=== PATIENT | female | born 1960 | race African-American/Black ===

== ENCOUNTER 2018-11-02 11:29 | Outpatient (CLI) | payer OTHER ==
--- NOTE | 2018-11-02 12:09 | RAD ---
RIGHT ANKLE TWO VIEWS: History: Disability exam. Patient had injury in 2011. FINDINGS/IMPRESSION: No fracture, dislocation, or bony destruction is seen. The ankle mortise is maintained. Posterior and plantar calcaneal spurs are present. POS: C
--- NOTE | 2018-11-02 13:13 | RAD ---
RADIOGRAPH LUMBAR SPINE 2 VIEWS: 11/02/2018 HISTORY: A 58-year-old female with low back pain. Disability examination. FINDINGS: There are six [id number] lumbar-type vertebrae. Vertebral body heights are maintained. No scol iosis. Large endplate marginal osteophytes protrude into the prevertebral space at L1-L2, and to a l brenton degree, at L2-L3. Mild to moderate disk space narrowing at L3-L4 and L4-L5. Moderate disk spa ce narrowing at L5-L6 and L6-S1. No spondylolisthesis. Hypertrophic degenerative facet changes at m ultiple levels. Vertebral body heights are maintained. IMPRESSION: 1. Lumbar spondylosis with multilevel facet osteoarthrosis and degenerative disk disease, of varying degrees. 2. Six lumbar type vertebrae. JN [] POS: MANNIE
== END 2018-11-02 11:30 | disposition home or self-care (01) ==
LOC: BICRAD 11:29
PROVIDERS: ATTEND Internal Medicine
DX: Z02.71 Encounter for disability determination (principal); M47.816 Spondylosis without myelopathy or radiculopathy, lumbar region; M51.36 Other intervertebral disc degeneration, lumbar region; M77.31 Calcaneal spur, right foot
CPT/HCPCS: 72100

== ENCOUNTER 2023-02-11 12:57 | Outpatient (CLI) | payer MEDICARE | END 2023-02-11 12:58 | disposition home or self-care (01) | LOC: BICMRI 12:57 | PROVIDERS: ATTEND Anesthesiology | DX: M47.26 Other spondylosis with radiculopathy, lumbar region (principal); M47.815 Spondylosis without myelopathy or radiculopathy, thoracolumbar region; M47.817 Spondylosis without myelopathy or radiculopathy, lumbosacral region; R26.2 Difficulty in walking, not elsewhere classified; M96.1 Postlaminectomy syndrome, not elsewhere classified; Z68.41 Body mass index [BMI] 40.0-44.9, adult | CPT/HCPCS: 72148 ==

== ENCOUNTER 2023-08-31 22:34 | Observation (INO) | payer MEDICARE ==
[~2023-08-31 22:34] MED LIST: Iopamidol-370 76% 500 ML MDV (1 ML CHARGE) ONE
[2023-08-31 23:03] LABS: #Eosinphils 0.1 thou/uL (0.0-0.7); #Monocytes 0.9 thou/uL (0.11-0.59); #Neutrophils 3.2 thou/uL (1.40-6.50); %Basophils 0.4 % (0.0-1.0); %Lymphocytes 37.9 % (21.0-51.0); %Monocytes 12.9 % (0.0-10.0); %Neutrophils 45.8 % (42.0-75.0); Hematocrit 31.2 % (36.0-47.0); Hemoglobin 9.6 g/dL (12.0-16.0); Mean Corpuscular HGB CONC 30.8 g/dL (32.0-36.0); Mean Corpuscular Volume 87.6 fl (78.0-98.0); Mean Platelet Volume 9.6 fL (7.4-10.4); Platelet Count 274 10x3/uL (130-400); RBC Distribution Width 14.6 % (11.5-14.5); Red Blood Cell (RBC) Count 3.56 mill/uL (4.20-5.40); White Blood Cell (WBC) Count 7.1 10x3/uL (4.8-10.8)
[2023-08-31 23:48] LABS: ALT (SGPT) 24 U/L (8-55); AST (SGOT) 38 U/L (5-34); Albumin 3.6 g/dL (3.4-4.8); Alkaline Phosphatase 77 U/L (40-110); Anion Gap 14 mmol/L (10-20); BUN (Urea Nitrogen) 29 mg/dL (9.8-20.1); Bilirubin, Total 0.6 mg/dL (0.2-1.2); Calc. Creatinine Clearance 0 mL/min (70-130); Carbon Dioxide 23 mmol/L (23-31); Chloride 101 mmol/L (98-107); Estimated GFR 22; Globulin 3.1 g/dL (2.4-3.5); Glucose 71 mg/dL (80-115); Potassium 3.9 mmol/L (3.5-5.1); Protein, Total 6.7 g/dL (5.8-8.1); Sodium 134 mmol/L (136-145)
[2023-09-01] MEDS ORDERED: Morphine 4 MG/ML VIAL ONE (00:15)
[2023-09-01 00:46] LABS: Bilirubin Negative (Negative); Blood, Urine Negative (Negative); CAUTI Indications for Culture Dysuria,urgency,freq; Clarity Clear (Clear); Glucose, Urine (Dipstick) 300 mg/dL (Negative); Ketone, Urine Negative (Negative); Leukocyte Negative Leu/uL (Negative); Nitrite Negative (Negative); Protein, Urine (Dipstick) 20 mg/dL (Neg-Trace); RBC/HPF 0-3 HPF (0-3); Specific Gravity, Urine 1.017 (1.002-1.036); Squamous Epithelial 0-3 HPF (0-3); WBC/HPF 0-3 HPF (0-3)
[2023-09-01 00:47] LABS: Bacteria/HPF Rare-Few HPF (None Seen)
[2023-09-01 00:48] LABS: Urine Culture Reflex No No
[2023-09-01] MEDS ORDERED: Senokot S 8.6-50 MG TAB PO PRN (01:04)
[2023-09-01] MEDS ORDERED: Dextrose 5% in Water 1,000 ML IV PRN (01:06)
[2023-09-01] MEDS ORDERED: Dextrose 50% Abboject 50 ML SYRINGE SLOW IVP PRN (01:06)
[2023-09-01] MEDS ORDERED: Glucagon 1 MG/ML KIT IM PRN (01:06)
[2023-09-01] MEDS ORDERED: Morphine 2 MG/ML VIAL SLOW IVP PRN (01:07)
[2023-09-01] MEDS ORDERED: Morphine 4 MG/ML VIAL SLOW IVP PRN (01:07)
[2023-09-01] MEDS ORDERED: Sodium Chloride 0.9% 1,000 ML IV SCH (02:00)
[2023-09-01] MEDS: oxyCODONE 5 MG TAB PO PRN ×3 (02:30→16:55)
[2023-09-01 02:53] VITALS: BMI 42.1
[2023-09-01] MEDS ORDERED: Sodium Chloride 0.9% 500 ML IV SCH (04:30)
[2023-09-01 06:28] LABS: #Eosinphils 0.1 thou/uL (0.0-0.7); #Monocytes 0.9 thou/uL (0.11-0.59); #Neutrophils 2.7 thou/uL (1.40-6.50); %Basophils 0.3 % (0.0-1.0); %Lymphocytes 38.7 % (21.0-51.0); %Neutrophils 43.5 % (42.0-75.0); Hematocrit 28.5 % (36.0-47.0); Hemoglobin 8.8 g/dL (12.0-16.0); Mean Corpuscular HGB CONC 30.9 g/dL (32.0-36.0); Mean Corpuscular Hemoglobin 27.5 pg (27.0-31.0); Mean Corpuscular Volume 89.1 fl (78.0-98.0); Mean Platelet Volume 9.2 fL (7.4-10.4); Platelet Count 250 10x3/uL (130-400); RBC Distribution Width 14.7 % (11.5-14.5); White Blood Cell (WBC) Count 6.1 10x3/uL (4.8-10.8)
[2023-09-01 07:13] VITALS: TEMP 98.2
[2023-09-01 07:34] LABS: Anion Gap 11 mmol/L (10-20); BUN (Urea Nitrogen) 24 mg/dL (9.8-20.1); Calc. Creatinine Clearance 75 mL/min (70-130); Calcium 8.7 mg/dL (7.8-10.44); Carbon Dioxide 24 mmol/L (23-31); Chloride 102 mmol/L (98-107); Estimated GFR 41; Glucose 81 mg/dL (80-115); Sodium 133 mmol/L (136-145)
[2023-09-01] MEDS ORDERED: Enoxaparin 40 MG (0.4 mL) SYRINGE SC SCH (09:00)
[2023-09-01] MEDS ORDERED: Famotidine 20 MG TAB PO SCH (09:00)
[2023-09-01 10:09] LABS: Hemoglobin A1c 8.4 % (4.0-6.0)
[2023-09-01 16:52] VITALS: BP 118/69
== END 2023-09-01 17:55 | disposition home or self-care (01) ==
LOC: ERS 22:34 → MSONC 09-01 00:36
PROVIDERS: ADMIT Student in an Organized Health Care Education/Training Program; ATTEND Family Medicine
DX: R41.82 Altered mental status, unspecified (principal); N17.9 Acute kidney failure, unspecified; E78.00 Pure hypercholesterolemia, unspecified; I12.9 Hypertensive chronic kidney disease with stage 1 through stage 4 chronic kidney disease, or unspecified chronic kidney disease; N18.30 Chronic kidney disease, stage 3 unspecified; E11.22 Type 2 diabetes mellitus with diabetic chronic kidney disease; E11.649 Type 2 diabetes mellitus with hypoglycemia without coma; M06.9 Rheumatoid arthritis, unspecified; E03.9 Hypothyroidism, unspecified; G89.18 Other acute postprocedural pain; Z90.49 Acquired absence of other specified parts of digestive tract; Z96.653 Presence of artificial knee joint, bilateral; Z98.890 Other specified postprocedural states; Z96.612 Presence of left artificial shoulder joint; Z79.890 Hormone replacement therapy; Z79.899 Other long term (current) drug therapy
CPT/HCPCS: 70450; 70496; 70498; 71045; 80048; 80053; 81001; 82962 ×2; 83036; 83605; 84443; 85025 ×2; 93005; 96372; 97116; G0378 ×2; 36415; 36416; 96361; 96374; 96375; J1650; J2270; J7030; J7050; Q9967